=== PATIENT | male | born 1970 | race Caucasian/White ===

== ENCOUNTER 2023-02-22 05:43 | Day surgery (SDC) | payer BC ==
[2023-02-19 16:33] VITALS: BMI 29.1
[2023-02-22] MEDS ORDERED: DEXAMETHASONE SOD PHOSPHATE 4 MG/ML 1 ML VIAL IV ONE (06:08)
[2023-02-22] MEDS ORDERED: LACTATED RINGERS 1,000 ML IV SCH (06:08)
[2023-02-22] MEDS ORDERED: ONDANSETRON 4 MG/2 ML VIAL IVP ONE (06:08)
[2023-02-22] MEDS ORDERED: SCOPOLAMINE 1 MG/72 HR PATCH TRANSDERM ONE (06:08)
[2023-02-22 06:44] VITALS: TEMP 96.8
[2023-02-22] MEDS ORDERED: MIDAZOLAM 2 MG/2 ML VIAL IVP ONE ×2 (06:50→07:20)
[2023-02-22] MEDS ORDERED: MIDAZOLAM 2 MG/2 ML VIAL IV PRN (07:00)
[2023-02-22] MEDS ORDERED: ePHEDrine 50 MG/ML 1 ML VIAL ONE (07:22)
[2023-02-22] MEDS ORDERED: PROPOFOL 10 MG/ML 20 ML VIAL IV ONE (07:22)
[2023-02-22] MEDS ORDERED: fentaNYL (PF) 50 MCG/ML 2 ML AMP ONE (07:22)
[2023-02-22] MEDS ORDERED: SODIUM CHLORIDE 0.9% (PF) 10 ML VIAL ONE (07:22)
[2023-02-22] MEDS ORDERED: ROPIVACAINE 5 MG/ML 30 ML VIAL ONE (07:22)
[2023-02-22] MEDS ORDERED: LIDOCAINE 1% INJ 10MG/ML (20 ML MDV) ONE (07:22)
[2023-02-22] MEDS ORDERED: ceFAZolin 1,000 MG in SODIUM CHLORIDE 0.9% 1,000 ML IRRIGATION ONE (07:43)
--- NOTE | 2023-02-22 07:46 | P.ANPRN ---
Procedure Note - Anesthesia - Nerve Block Performed Right Adductor Canal Single Time Out Performed: Yes Date of Procedure: 02/22/23 Procedure Start Time: 06:59 Procedure Stop Time: 07:04 Location of Patient: PreOp Indication: Acute Post-Operative Pain, Analgesia, Requested by Surgeon Sedation Type: Sedate with meaningful contact maintained Preparation: Sterile Prep Position: Supine Catheter: None Needle Types: Pajunk Needle Gauge: 21 Ultrasound used to visualize needle placement: Yes Ultrasound used to observe medication spread: Yes Injectate: 0.5% Ropivacaine (see comment for volume) (Ropiv. 10ml+NS5ml) Blood Aspirated: No Pain Paresthesia on Injection Noted: No Resistance on Injection: Normal Image Stored and Saved: Yes Events: Uneventful and Well Tolerated
--- NOTE | 2023-02-22 08:15 | P.ANPRN ---
Procedure Note - Anesthesia - Nerve Block Performed Right Popliteal Single Time Out Performed: Yes Date of Procedure: 02/22/23 Procedure Start Time: 07:05 Procedure Stop Time: 07:14 Location of Patient: PreOp Indication: Acute Post-Operative Pain, Analgesia, Requested by Surgeon Sedation Type: Sedate with meaningful contact maintained Preparation: Sterile Prep Position: Left Lateral Catheter: None Needle Types: Pajunk Needle Gauge: 21 Ultrasound used to visualize needle placement: Yes Ultrasound used to observe medication spread: Yes Injectate: 0.5% Ropivacaine (see comment for volume) (Ropivacaine 15ml+NS5ml) Blood Aspirated: No Resistance on Injection: Normal Image Stored and Saved: Yes Events: Uneventful and Well Tolerated
--- NOTE | 2023-02-22 08:54 | P.OP ---
Date of Procedure: 02/22/23 Preoperative Diagnosis: Hallux rigidus right foot Postoperative Diagnosis: Same Procedure(s) Performed: First metatarsal phalangeal joint arthrodesis right foot Implants: Arthrex MaxForce plate with locking and nonlocking screws Arthrex bone allograft Anesthesia: MONICA Surgeon: Jony Harrell Estimated Blood Loss (ml): 3 Pathology: none sent Condition: stable Disposition: PACU Description of Procedure: Prior to the patient being brought to the operating room, anesthesia administered a nerve block on the surgical extremity. Then the patient was brought into the operating room and placed on table in the supine position. Timeout was taken to confirm correct patient identifiers, correct lateral surgery, and correct procedure. Once the staff in the room were in agreement with the timeout, the patient was induced and placed under general anesthesia. A well-padded tourniquet was placed on the ankle and then the foot was prepped and draped in the usual manner. The right foot was exsanguinated and the tourniquet inflated to 250 mmHg. Attention was directed over the dorsal aspect of the first metatarsal phalangeal joint, where a linear incision was made between the long extensor tendon and the neurovascular structures. The incision was deepened down to the subcutaneous layer careful to identify, avoid, and retract any neurovascular structures and cauterize any bleeding vessels. Blunt dissection was continued through the subcutaneous layer down to the periosteum and capsule. A linear periosteal and capsular incision was made medial to the long extensor tendon. Those tissues were then sharply reflected off of the first metatarsal head and shaft as well as the base of the proximal phalanx. The soft tissue was released around the joint so that the joint could be mobilized and accessed. A guidewire was placed through the central aspect of the first metatarsal head parallel to the long access and within the medullary canal. Appropriate size reamers were used to shape the first metatarsal head. Then a concave reamer was inserted over the guidewire and used to remove the articular cartilage and subchondral bone. The wire was removed was used to aggressively fenestrate the head of the first metatarsal. The guidewire was then inserted at the central aspect of the articular surface of the base of the proximal phalanx. The wire was advanced parallel to the long access and within the medullary canal. The convex reamer was then used to remove the articular cartilage and subchondral bone. The guidewire was removed and used to fenestrate the surface. The wound was thoroughly irrigated with antibiotic saline. Arthrex Arthrocell was placed between the arthrodesis segments. A 0 bend first metatarsal phalangeal joint fusion plate was then positioned dorsally over the site. Temporary fixation was used to hold the plate in place. Fluoroscopy was used to check the placement of the plate as well as the joint alignment. Once both positions were satisfactory, a combination of locking and nonlocking screws were placed in the distal part of the plate into the proximal phalanx. The position of the joint and plate were checked again under fluoroscopy. Once both were satisfactory, a wire was placed in the base of the proximal phalanx and across the arthrodesis site to maintain the alignment. The offset drill guide was then placed in the compression slot of the plate. The guide was removed and then the compression device was inserted through the drill hole and engaged with the plate. The compression device was turned to further compress the joint. While holding in compression, another threaded olive wire was used to hold it in place. A drill hole through the proximal compression slot was then made and a nonlocking screw was inserted and tightened until it engaged the plate and provided further co mpression across the arthrodesis site. A nonlocking screw was then placed in the drill hole in the proximal aspect of the plate closest to the joint line. The final screw was a locking screw placed in the most proximal hole the plate. Final fluoroscopic imaging showed proper placement of all hardware, maintaining correction of the joint, and excellent compression across the arthrodesis site. The temporary fixation wire was removed and the joint thoroughly irrigated with antibiotic saline. The capsule and periosteal tissues were closed with 0 Vicryl. Subcu closure was done with 4-0 Monocryl. And skin closure was done with 4-0 Stratafix in a running subcuticular manner. Dermal glue was placed around the incision, and once dried, Steri-Strips are placed across incision. An Arthrex jumpstart dressing was placed directly over the incision and then a dry sterile dressings applied to the right foot. The tourniquet was released and capillary refill return to all digits on the right foot. The patient was then placed in a well-padded, well molded plaster posterior mold/sugar tong splint. The ankle was held in neutral position until the splint was dried. Then anesthesia was reversed and the patient was taken recovery with vital signs stable.
[2023-02-22] MEDS: HYDROmorphone 0.5 MG/0.5 ML SYRINGE IVP PRN ×2 (09:06→09:34)
[2023-02-22 09:15] VITALS: RESP 16
[2023-02-22] MEDS ORDERED: LACTATED RINGERS 1,000 ML IV ONE (09:26)
[2023-02-22] MEDS: LACTATED RINGERS 1,000 ML IV ONE (09:26)
[2023-02-22 10:30] VITALS: BP 132/85; PULSE 60
== END 2023-02-22 10:58 | disposition home or self-care (01) ==
LOC: OR 05:43
PROVIDERS: ATTEND Podiatrist
DX: M20.21 Hallux rigidus, right foot (principal); M19.071 Primary osteoarthritis, right ankle and foot; F10.90 Alcohol use, unspecified, uncomplicated
CPT/HCPCS: 64447; 64445; 28750; C1713; C1734; J2250; J1100; J0690 ×2; J2405; J2001; J3010; J2795; J2704; J1170

== ENCOUNTER 2024-08-22 21:45 | Emergency (ER) | payer BC ==
--- NOTE | 2024-08-22 22:40 | ED ---
Skin/Abscess/FB HPI - General Chief complaint: Skin/Abscess/Foreign Body Stated complaint: Rash Time Seen by Provider: 08/22/24 22:30 Source: patient, RN notes reviewed Mode of arrival: ambulatory Limitations: no limitations - History of Present Illness Initial comments: This is a 53-year-old male who presents to the emergency department for a rash. States that it started a week ago on his chest and has now spread to essentially his whole body. Describes the rash as very itchy. Unsure what he may have come into contact with. He tried using calamine lotion without much relief. He does have a small area on the chest that has started to break open and blister. Denies any fevers or chills. MD complaint: rash - Related Data Home Medications Medication Instructions Recorded Confirmed Acetaminophen [Tylenol Extra 1,000 mg PO Q8HR PRN 02/19/23 02/22/23 Strength] Naproxen Sodium [Aleve] 220 mg PO BID PRN 02/19/23 02/22/23 Previous Rx's Medication Instructions Recorded HYDROcodone/APAP 7.5-325MG [Quanah 1 tab PO Q6HR PRN #28 tab 02/22/23 7.5-325] Famotidine 40 mg PO DAILY 14 Days #14 tablet 08/22/24 Mupirocin 2% Oint [Bactroban 2% 1 applic TOPICAL TID #22 gm 08/22/24 Oint] Triamcinolone 0.1% Cream [Kenalog 1 applicatio TOPICAL QID #80 gm 08/22/24 0.1% Cream] diphenhydrAMINE [Benadryl] 50 mg PO QID PRN #30 capsule 08/22/24 predniSONE 10 mg PO DIRECTED 12 Days #30 08/22/24 tab Allergies Allergy/AdvReac Type Severity Reaction Status Date / Time No Known Allergies Allergy Verified 08/22/24 22:32 Review of Systems ROS Statement: Those systems with pertinent positive or pertinent negative responses have been documented in the HPI. ROS Other: All systems not noted in ROS Statement are negative. Past Medical History Past Medical History: Osteoarthritis (OA) History of Any Multi-Drug Resistant Organisms: None Reported Past Surgical History: Orthopedic Surgery Additional Past Surgical History / Comment(s): COLONOSCOPY Past Anesthesia/Blood Transfusion Reactions: No Reported Reaction Past Psychological History: No Psychological Hx Reported Smoking Status: Never smoker Past Alcohol Use History: Occasional Past Drug Use History: None Reported - Past Family History Mother Family Medical History: Cancer General Exam Limitations: no limitations General appearance: alert, in no apparent distress Head exam: Present: atraumatic, normocephalic, normal inspection Respiratory exam: Present: normal lung sounds bilaterally. Absent: respiratory distress, wheezes, rales, rhonchi, stridor Cardiovascular Exam: Present: regular rate, normal rhythm Neurological exam: Present: alert, oriented X3, CN II-XII intact Psychiatric exam: Present: normal affect, normal mood Skin exam: Present: other (Urticaria to the bilateral upper and lower extremities and trunk with an area of blistering and excoriation to the left upper chest.) Course Vital Signs 08/22/24 08/22/24 22:28 23:17 Temperature 98.1 F 99.0 F Pulse Rate 92 61 Respiratory 18 19 Rate Blood Pressure 126/83 120/81 O2 Sat by Pulse 97 97 Oximetry Medical Decision Making - Medical Decision Making This is a 53-year-old male who presents to the emergency department for a rash. Was pt. sent in by a medical professional or institution? @ -No Did you speak to anyone other than the patient for history? @ -No Did you review nursing and triage notes? @ -Yes, and I agree, it is accurate with regards to the patient's symptoms. Were old charts reviewed? @ -No Differential Diagnosis? @ -Roseola, measles, Lyme disease, erythema multiforme, cellulitis, toxic shock syndrome, Ever Ramirez syndrome, Kawasaki disease, amina mountain spotted fever, contact dermatitis, allergic dermatitis, measles, mumps, rubella, varicella, meningococcal disease, drug reaction, coxsackievirus, This is not meant to be an all-inclusive list. EKG interpreted by me (3pts min.)? @ -Not obtained X-rays interpreted by me (1pt min.)? @ -Not obtained CT interpreted by me (1pt min.)? @ -Not obtained U/S interpreted by me (1pt. min.)? @ -Not obtained What testing was considered but not performed? (CT, X-rays, U/S, labs)? Why? @ -None What meds were considered but not given? Why? @ -None Did you discuss the management of the patient with other professionals? @ -No Did you reconcile home meds? @ -No Was smoking cessation discussed for >3mins.? @ -No Was critical care preformed (if so, how long)? @ -No Were there social determinants of health that impacted care today? How? (Homelessness, low income, unemployed, alcoholism, drug addiction, transportation, low edu. Level, literacy, decrease access to med. care, long-term, rehab)? @ -No Was there de-escalation of care discussed even if they declined? (Discuss DNR or withdrawal of care, Hospice)? @ -No What co-morbidities impacted this encounter? (DM, HTN, Smoking, COPD, CAD, Cancer, CVA, Hep., AIDS, mental health diagnosis, sleep apnea, morbid obesity)? @ -None Was patient admitted / discharged? @ -Discharged. Physical examination consistent with diffuse urticaria. Advised that the exact cause of this would be difficult to pinpoint, however we will treat him with an allergy cocktail regardless. Solu-Medrol, Benadryl, and famotidine administered in the emergency department. He did have an area of of skin breakdown along the left upper chest and Bactroban ointment was applied. He was given a prescription for a prednisone taper along with Benadryl, famotidine, and triamcinolone cream. Bactroban prescribed as well for the area of skin breakdown. Advised follow-up with his PCP for reevaluation. Patient discharged home in stable condition. Case discussed with ED attending Dr. Leger. Return precautions reviewed in depth, the patient is instructed to return to the emergency department with any new, worsening, or concerning symptoms. Patient verbalized understanding. Undiagnosed new problem with uncertain prognosis? @ -None Drug Therapy requiring intensive monitoring for toxicity (Heparin, Nitro, Insulin, Cardizem)? @ -None Were any procedures done? @ -None Diagnosis/symptom? @ -Urticaria Acute, or Chronic, or Acute on Chronic? @ -Acute Uncomplicated (without systemic symptoms) or Complicated (systemic symptoms)? @ -Uncomplicated Side effects of treatment? @ -None Exacerbation, Progression, or Severe Exacerbation] @ -Not applicable Poses a threat to life or bodily function? @ -No Disposition Clinical Impression: Urticaria Disposition: HOME SELF-CARE Instructions (If sedation given, give patient instructions): Urticaria (ED) Additional Instructions: Return to the emergency department with any new, worsening, or concerning symptoms. Take the prednisone taper as prescribed over the next 12 days. Take the famotidine daily for the next 2 weeks. Take the Benadryl up to 4 times daily to help with itching. You can apply the triamcinolone cream up to 4 times daily as a spot treatment to the most bothersome areas. Avoid applying this to the face. Apply the mupirocin ointment up to 3 times daily to the open blister area on the chest. Follow up with your primary care provider in 1-2 days. Prescriptions: Mupirocin 2% Oint [Bactroban 2% Oint] 1 applic TOPICAL TID #22 gm diphenhydrAMINE [Benadryl] 50 mg PO QID PRN #30 capsule PRN Reason: Itching Famotidine 40 mg PO DAILY 14 Days #14 tablet Triamcinolone 0.1% Cream [Kenalog 0.1% Cream] 1 applicatio TOPICAL QID #80 gm predniSONE 10 mg PO DIRECTED 12 Days #30 tab Is patient prescribed a controlled substance at d/c from ED?: No Referrals: Huma Otrega MD [Primary Care Provider] - 1-2 days Time of Disposition: 22:40
[2024-08-22] MEDS: FAMOTIDINE 20 MG TAB PO STA (23:11)
[2024-08-22] MEDS: MUPIROCIN 2% OINT 22 GM TUBE TOPICAL STA (23:11)
[2024-08-22] MEDS: TRIAMCINOLONE 0.1% CREAM 80 GM TUBE TOPICAL STA (23:12)
[2024-08-22] MEDS: methylPREDNISolone SOD SUCCI 125 MG/2 ML VIAL IM ONE (23:13)
[2024-08-22] MEDS: diphenhydrAMINE 50 MG/ML 1 ML VIAL IM STA (23:14)
[2024-08-22 23:19] VITALS: BP 120/81; PULSE 61; RESP 19; TEMP 99
== END 2024-08-22 23:26 | disposition home or self-care (01) ==
LOC: EC 21:45
DX: L50.9 Urticaria, unspecified (principal)
CPT/HCPCS: 99282; 96372 ×2; J1200; J2919